=== PATIENT | female | born 1975 | race Caucasian/White ===

== ENCOUNTER 2021-12-10 01:16 | Inpatient (IN) | payer MEDICAID, MEDICARE ==
[~2021-12-10] VITALS: Ht 160 cm; Wt 67.6 kg
[~2021-12-10 01:16] MED LIST: NO HOME MEDS
[2021-12-10 02:16] LABS: BASOPHILS % (AUTO) 0.6 % (0-1); EOSINOPHILS # (AUTO) 0.1 X10'3 (0-0.9); EOSINOPHILS % (AUTO) 0.7 % (0-6); HEMATOCRIT 39.7 % (35.0-45.0); HEMOGLOBIN 13.4 g/dl (12.0-16.0); LYMPHOCYTES # (AUTO) 1.1 X10'3 (1.1-4.8); LYMPHOCYTES % (AUTO) 14.1 % (21-51); MEAN CORPUSCULAR HEMOGLOBIN 30.3 PG (27.0-31.0); MEAN CORPUSCULAR HGB CONC 33.7 g/dL (33.0-36.5); MEAN CORPUSCULAR VOLUME 89.7 FL (78-98); MEAN PLATELET VOLUME 8.3 FL (7.4-10.4); MONOCYTES # (AUTO) 0.6 X10'3 (0-0.9); MONOCYTES % (AUTO) 7.7 % (2-12); NEUTROPHILS # (AUTO) 5.8 X10'3 (1.8-7.7); NEUTROPHILS % (AUTO) 76.9 % (42-75); PLATELET COUNT 327 X10'3 (140-440); RED BLOOD COUNT 4.42 X10'6 (4.20-5.60); RED CELL DISTRIBUTION WIDTH 14.4 % (11.5-14.5); WHITE BLOOD COUNT 7.6 X10'3 (4.5-11.0)
[2021-12-10 02:30] LABS: ALANINE AMINOTRANSFERASE 70 U/L (12-78); ALBUMIN 3.8 G/DL (3.4-5.0); ALBUMIN/GLOBULIN RATIO 0.8 (1.1-1.5); ALKALINE PHOSPHATASE 53 IU/L (46-116); ANION GAP 13 (8-16); ASPARTATE AMINO TRANSFERASE 83 U/L (10-37); BILIRUBIN,TOTAL 0.3 MG/DL (0.1-1.0); BLOOD UREA NITROGEN 7 MG/DL (7-18); BUN/CREATININE RATIO 8.4 (6.6-38.0); CALCIUM 8.4 MG/DL (8.5-10.1); CHLORIDE 105 MMOL/L (99-107); CREATININE 0.83 MG/DL (0.40-0.90); GLUCOSE 89 MG/DL (70-104); POTASSIUM 3.2 MMOL/L (3.5-5.1); SODIUM 139 MMOL/L (135-145); TOTAL CARBON DIOXIDE 21.3 MMOL/L (24-32); TOTAL PROTEIN 8.3 G/DL (6.4-8.2); eGFR 74 ML/MIN
[2021-12-10 03:24] LABS: CLARITY,URINE SLIGHTLY CLOUDY (Clear); COLOR,URINE YELLOW (Yellow); GLUCOSE, URINE NEGATIVE (Neg); KETONES,URINE TRACE mg/dl (Neg); LEUKOCYTE ESTERASE ,URINE NEGATIVE (Neg); NITRITES, URINE NEGATIVE (Neg); OCCULT BLOOD,URINE LARGE (Neg); PH,URINE 5.5 (4.8-8.0); PROTEIN,URINE 100 mg/dl (Neg); URINE HCG NEGATIVE (NEG); UROBILINOGEN,URINE 0.2 E.U/dL (0.2-1.0)
[2021-12-10 03:26] LABS: URINE AMPHETAMINE SCREEN NEGATIVE (Neg); URINE BARBITUATE SCREEN NEGATIVE (Neg); URINE BENZODIAZEPINES SCREEN NEGATIVE (Neg); URINE CANNABINOID SCREEN NEGATIVE (Neg); URINE COCAINE SCREEN NEGATIVE (Neg); URINE METHADONE SCREEN NEGATIVE (Neg); URINE OPIATE SCREEN NEGATIVE (Neg); URINE PHENCYCLIDINE SCREEN NEGATIVE (Neg)
[2021-12-10 03:27] LABS: UA COLLECTION TYPE CLN CATCH MIDSTREAM
[2021-12-10 03:38] LABS: BACTERIA,URINE 1+ /HPF (Neg); SQUAMOUS EPITHELIAL CELL,UR MANY /LPF (FEW)
[2021-12-10 03:39] LABS: CELLULAR CAST 0-4 /LPF (NEGATIVE); MUCUS STRANDS FEW /LPF (Neg)
--- NOTE | 2021-12-10 04:57 | NUR ---
PATIENT RESTING COMFORTABLY AT THIS TIME
[2021-12-10] MEDS ORDERED: lisinopril 10 MG tablet PO ONE ×2 (05:40→07:35)
--- NOTE | 2021-12-10 06:26 | NUR ---
Pt sleeping. No apparent distress or needs at this time.
--- NOTE | 2021-12-10 07:25 | NUR ---
Pt's BP 152/110. notified. Verbal order to give pt another 10mg Lisinopril PO, and make sure she has 20mg/day
--- NOTE | 2021-12-10 08:23 | NUR ---
Breakfast at bedside.
--- NOTE | 2021-12-10 08:58 | NUR ---
No change in BP after 2nd dose lisinopril.
--- NOTE | 2021-12-10 12:01 | NUR ---
[facility]22. PT. PRESENTS CALM AND COOPERATIVE WITH THIS [employer]. DENIES ANY CURRENT SI/HI OR A/V HALLUCINATIONS. PT. STATES SHE IS WANTING TO GO HOME AND HUG HER KITTEN. PT. INFORMED THAT SHE WOULD MEET WITH THE [facility] CLINICIAN SOMETIME DURING THE DAY FOR FURTHER EVALUATION FOR DISPOSITION. PT. VISIBLE ON THE UNIT AWAKE LYING IN BED. STAFF WILL CONTINUE TO MONITOR FOR SAFETY.
[2021-12-10] MEDS ORDERED: LISI20TA28 PO (12:20)
--- NOTE | 2021-12-10 12:24 | NUR ---
PT. SITTING IN BED EATING LUNCH.
--- NOTE | 2021-12-10 14:09 | NUR ---
PT. RESTING QUIETLY IN BED WITH EYES CLOSED. NO DISTRESS NOTED.
--- NOTE | 2021-12-10 16:55 | NUR ---
RESTING QUIETLY WITH EYES CLOSED NO DISTRESS NOTED.
--- NOTE | 2021-12-10 17:20 | NUR ---
[facility] CLINICIAN AT BEDSIDE.
--- NOTE | 2021-12-10 20:15 | NUR ---
PT resting in bed with eyes closed. No distress noted at this time.
--- NOTE | 2021-12-10 22:30 | NUR ---
Pt resting in bed with eyes closed, no distress noted.
--- NOTE | 2021-12-11 01:00 | NUR ---
Pt repositioned self in bed , pt appears to be sleeping, no distress noted.
--- NOTE | 2021-12-11 07:28 | NUR ---
PATIENT WAS RECEIVED RESTING IN BED QUIETLY. RESP EVEN AND NON LABORED . NO S/S OF DISCOMFORT. WILL CONTINUE TO ASSIST AND MONITOR NEEDED.
[2021-12-11] MEDS: lisinopril 20mg tablet PO SCH ×2 (08:18→08:19)
--- NOTE | 2021-12-11 11:40 | NUR ---
ADMIT NOTE Patient is a 46 year old female placed on a 5150 for DTS, arrived on the unit from [facility] at 1135. The original 5150 was written by law enforcement after she made suicidal statements to them and her , and was engaging in cutting behaviors. Toxicology +ETOH .250 She has a history of psychiatric hospitalization, but is not currently connected with services. Skin check completed, belongings inventoried. Pt calm and cooperative with admission process.
[2021-12-11 11:44] VITALS: BP 162/96
[2021-12-11] MEDS ORDERED: mag hydrox/Alum hydrox/simeth 30ml oral suspension PO PRN (11:45)
[2021-12-11] MEDS ORDERED: acetaminophen 325mg tablet PO PRN ×2 (11:45)
[2021-12-11] MEDS ORDERED: loperamide 2mg capsule PO PRN (11:45)
[2021-12-11] MEDS ORDERED: magnesium hydroxide 30ml (MOM) UD suspension PO PRN (11:45)
[2021-12-11 20:00] VITALS: BP 164/104
[2021-12-11] MEDS ORDERED: hydrOXYzine 25 MG tablet PO PRN (20:45)
[2021-12-11] MEDS ORDERED: traZODone 50mg tablet PO PRN (20:45)
[2021-12-11] MEDS ORDERED: QUEtiapine 25mg tablet PO PRN (20:45)
--- NOTE | 2021-12-11 22:07 | NUR ---
Pt with history of hypertension, B/P at this time checked manually and she is 164/104 , pt was resting in bed. She has no complaints at this time except for neck pain. Does take Lisinopril 20 mg daily, received dose this am, did require 2 one time doses of Lisinopril 10 mg in the ER due to elevated blood pressures. Call out to OCP to notify them of her current blood pressure.
--- NOTE | 2021-12-12 00:05 | NUR ---
OCP called back about patients blood pressure, no further orders at this time. Continue to monitor and notify hospitalist when they come to see patient for her admit physical.
--- NOTE | 2021-12-12 00:14 | NUR ---
Nursing Progress Note: Aida Legal hold: 5150 Client on involuntary status for DTS Report received from Laura MENA with use of SBAR. Why are they here: Patient is a 46 year old female placed on a 5150 for DTS, arrived on the unit from [facility] at 1135. The original 5150 was written by law enforcement after she made suicidal statements to them and her , and was engaging in cutting behaviors. Assessment What has happened this shift: Pt sitting up in bed reading at change of shift. Pt denies MH symptoms and stated all that she is thinking about are her 4 cats at home. She denies depression and anxiety, complained of some neck pain, PRN Tylenol given with good effect. She did state that her and her are right now but are trying to work things out. BP 164/107 provider notified. S/I, H/I: Pt denies both. A/VH: Pt denies both Sleep: ADL's: Independent Group attendance: No Were meds taken: No scheduled medications. Any med S/E: None reported or observed. Mental Status Exam Appearance: middle age female dressed in green unit scrubs Eye contact: fair Behavior: calm, cooperative Speech: WNL Mood: calm Affect: linear Thought process: missing her 4 cats Thought Content: trying to work things out with her Cognition: A&O X 3 Insight: fair Judgment: fair Interventions PRN's used: None. Therapeutic interventions: 1:1 assessment, establishment of rapport, therapeutic conversation, active listening, medication administration/education/monitoring, behavior monitoring and intervention as needed; distraction, redirection, reality orientation, verbal de-escalation, limit setting, show of support, positive reinforcement, and Q 15 minute safety checks. Restraints/seclusion/emergency medication: None Justification of Continued Inpatient Treatment: Patient continues to present disorganized and delusional. Pt is thin and refusing nutrition or eating minimally. Pt unable to formulate plan for food, long term or clothing. Pt is intermittent in taking her medications, will continue to monitor.
[2021-12-12 07:32] LABS: CHOL/HDL RATIO 2.1 (0.00-4.99); CHOLESTEROL 173 MG/DL (0-200); HDL CHOLESTEROL 81 MG/DL (35-60); LDL CHOLESTEROL 45 MG/DL (50-100); TRIGLYCERIDES 137 MG/DL (20-135)
[2021-12-12 07:33] VITALS: BP 155/109
[2021-12-12] MEDS: lisinopril 20mg tablet PO SCH (09:04)
--- NOTE | 2021-12-12 09:06 | NUR ---
Pt. attended two groups today. In our first group we talked about hearing voices and read an article about coping strategies. We discussed what coping strategies they had success with in the past and brainstormed developing coping skills. The second group was an Art Expression where they had to draw opposing emotions and then write a dialogue between these emotions. Pt. engaged in both groups today. She quietly observes what is going on in the group and speaks minimally. When asked to share she hesitantly shared her thoughts with the group. She was alert and oriented X 4. Her thought content is simple but she was able to engage in the art expression - her opposing feelings were sad and happy. She shared she was sad when a friend betrayed her and is happiest with friends and family. Her demeanor is calm and compliant. Her mood is bright with a restricted affect. Stacey Carbajal LCSW
[2021-12-12] MEDS ORDERED: naltrexone 50mg tablet PO ONE (13:20)
--- NOTE | 2021-12-12 15:23 | NUR ---
Aida is a 46 y/o female who called [facility] making suicidal statements and reported she cut her wrist. She was placed on 5150 and taken to [facility] ER. She was placed on another 5150 for danger to self. She had superficial cuts to her wrist which did not require medical attention. She has a history of alcohol abuse and her HANH was .250 upon presentation to the ER. She has a history of psychiatric hospitalization and was last hospitalized 08/2019 at [place]. Aida reported she was "a little depressed a few nights ago" and was drinking alcohol. "Drinking is more the cause than anything". She reported she superficially cut on her arms. She denied any current SI or HI. She reported she needs to stop drinking. She noted she did have 2 years sobriety at one point. She declined assistance with going to an in-patient program, "I can do it on my own". She reported she has a lot of support to help her stay sober including AA, [facility], [facility], and her family. Aida reported a couple of previous hospitalizations. She reported she was going to [facility] at one point and would like to re-establish with them. Aida reported she and her are and live in separate trailers in a trailer park in [place]. Aida has an [facility] worker and a payee. She reported her family is supportive. Her mother takes care of her 10 y/o son and also lives in [place]. [facility]ler Helper will schedule follow up at [facility] for patient. JONH Yoo Addendum: 12/12/21 at 1525 by Luz DOYLE Amended: Links added.
--- NOTE | 2021-12-12 17:42 | NUR ---
Nursing Progress Note: Aida Legal hold: 5150 Client on involuntary status for DTS Report received from RAJESH Graham with use of SBAR. Why are they here: Patient is a 46 year old female placed on a 5150 for DTS, arrived on the unit from [facility] at 1135. The original 5150 was written by law enforcement after she made suicidal statements to them and her , and was engaging in cutting behaviors. Assessment What has happened this shift: Patient is resting quietly in bed at the start of the shift. Cooperative with 1:1 assessment and medication. Noted talking on the phone. She is pleasant and cooperative although somewhat guarded when discussing mental health symptoms. Denies and SI at this time. Participates in group. S/I, H/I: Denies A/VH: Denies Sleep: 2 hours in the morning ADL's: Independent Group attendance: No Were meds taken: Yes Any med S/E: None observed or reported. Mental Status Exam Appearance: middle age female dressed in green unit scrubs Eye contact: fair Behavior: Cooperative Speech: Clear, normal rate/ volume Mood: Fine. Affect: Congruent Thought process: Linear Thought Content: Meeting needs Cognition: A&O X 3 Insight: fair Judgment: fair Interventions PRN's used: None. Therapeutic interventions: 1:1 assessment, establishment of rapport, therapeutic conversation, active listening, medication administration/education/monitoring, behavior monitoring and intervention as needed; distraction, redirection, reality orientation, verbal de-escalation, limit setting, show of support, positive reinforcement, and Q 15 minute safety checks. Restraints/seclusion/emergency medication: None Justification of Continued Inpatient Treatment: Patient continues to present disorganized and delusional. Pt is thin and refusing nutrition or eating minimally. Pt unable to formulate plan for food, mcfp or clothing. Pt is intermittent in taking her medications, will continue to monitor.
[2021-12-12 19:00] VITALS: BP 123/84
--- NOTE | 2021-12-13 04:47 | NUR ---
Nursing Progress Note: Legal hold: 5150 Client on involuntary status for DTS Report received from HIMANSHU Beard with use of SBAR. Why are they here: Patient is a 46 year old female placed on a 5150 for DTS, arrived on the unit from [facility] at 1135. The original 5150 was written by law enforcement after she made suicidal statements to them and her , and was engaging in cutting behaviors. Assessment What has happened this shift: Patient laying in bed at the beginning of shift. Pleasant and cooperative with care; no scheduled medications this shift. Patient appeared animated; laughing prior to responding to MH assessment. She denies SI, HI, A/VH; no apparent delusions reported. Patient did not participate in HS snack this shift; observed sleeping and does not appear to be having difficulty. S/I, H/I: Denies A/VH: Denies Sleep: Refer to sleep assessment ADL's: Independent Group attendance: NA Were meds taken: Yes Any med S/E: None observed or reported Mental Status Exam Appearance: Appropriately dressed in green unit attire Eye contact: Fair Behavior: Pleasant and cooperative; isolative Speech: Clear, normal rate/ volume Mood: "Good" Affect: Animated Thought process: Linear Thought Content: Meeting needs Cognition: A&O X 3 Insight: Fair Judgment: Fair Interventions PRN's used: None Therapeutic interventions: 1:1 assessment, establishment of rapport, therapeutic conversation, active listening, medication administration/education/monitoring, behavior monitoring and intervention as needed; distraction, redirection, reality orientation, verbal de-escalation, limit setting, show of support, positive reinforcement, and Q 15 minute safety checks. Restraints/seclusion/emergency medication: None Justification of Continued Inpatient Treatment: Patient continues to present disorganized and delusional. Pt is thin and refusing nutrition or eating minimally. Pt unable to formulate plan for food, intermediate or clothing. Pt is intermittent in taking her medications, will continue to monitor.
[2021-12-13] MEDS: naltrexone 50mg tablet PO SCH (07:48)
[2021-12-13] MEDS: lisinopril 20mg tablet PO SCH (07:49)
[2021-12-13 08:02] VITALS: BP 145/99
--- NOTE | 2021-12-13 10:50 | NUR ---
DISCHARGE PLAN Aida may discharge when her hold is up on 12/14/21. Scheduled her follow up with Arturo Mireles with both Primary Care and her counselor. Call [facility] office at [phone] to request transportation. JONH Yoo
--- NOTE | 2021-12-13 17:20 | NUR ---
Nursing Progress Note: Aida Legal hold: 5150 Client on involuntary status for DTS Report received from RAJESH Guardado with use of SBAR. Why are they here: Patient is a 46 year old female placed on a 5150 for DTS, arrived on the unit from [facility] at 1135. The original 5150 was written by law enforcement after she made suicidal statements to them and her , and was engaging in cutting behaviors. Assessment What has happened this shift: Patient is resting quietly in bed at the start of the shift. Cooperative with 1:1 assessment and medications. Pleasant and talkative. States she had weird dreams last night about alcohol. She states that when she stops drinking alcohol for long periods of time she has weird dreams about it. Does not appear to be distressed over her dreams. Denies and mental health symptoms. Spends time socializing on the unit. Participates in group. S/I, H/I: Denies A/VH: Denies Sleep: 2 hours in the morning ADL's: Independent Group attendance: Yes Were meds taken: Yes Any med S/E: None observed or reported. Mental Status Exam Appearance: middle age female dressed in green unit scrubs Eye contact: fair Behavior: Cooperative Speech: Clear, normal rate/ volume Mood: Good. Affect: Congruent Thought process: Linear Thought Content: Meeting needs Cognition: A&O X 4 Insight: fair Judgment: fair Interventions PRN's used: None. Therapeutic interventions: 1:1 assessment, establishment of rapport, therapeutic conversation, active listening, medication administration/education/monitoring, behavior monitoring and intervention as needed; distraction, redirection, reality orientation, verbal de-escalation, limit setting, show of support, positive reinforcement, and Q 15 minute safety checks. Restraints/seclusion/emergency medication: None Justification of Continued Inpatient Treatment: Patient continues to present disorganized and delusional. Pt is thin and refusing nutrition or eating minimally. Pt unable to formulate plan for food, half-way or clothing. Pt is intermittent in taking her medications, will continue to monitor.
[2021-12-13 19:50] VITALS: BP 145/101
--- NOTE | 2021-12-14 04:23 | NUR ---
Nursing Progress Note: Legal hold: 5150 Client on involuntary status for DTS Report received from HIMANSHU Beard with use of SBAR. Why are they here: Patient is a 46 year old female placed on a 5150 for DTS, arrived on the unit from [facility] at 1135. The original 5150 was written by law enforcement after she made suicidal statements to them and her , and was engaging in cutting behaviors. Assessment What has happened this shift: Patient watching TV with peers in the recreation room at the beginning of shift. Pleasant and cooperative with care; no medications scheduled this shift. She denies SI, HI, A/VH; does not appear to be responding to IS and no apparent delusions reported. Patient participated in HS snack and continued to watch TV prior to bed; observed sleeping and does not appear to be having difficulty. S/I, H/I: Denies A/VH: Denies Sleep: Refer to sleep assessment ADL's: Independent Group attendance: NA Were meds taken: Yes Any med S/E: None observed or reported Mental Status Exam Appearance: Appropriately dressed in green unit attire Eye contact: Fair Behavior: Pleasant and cooperative; watching TV Speech: Clear, normal rate/ volume Mood: "Good" Affect: Animated Thought process: Linear Thought Content: Meeting needs Cognition: A&O X 3 Insight: Fair Judgment: Fair Interventions PRN's used: None Therapeutic interventions: 1:1 assessment, establishment of rapport, therapeutic conversation, active listening, medication administration/education/monitoring, behavior monitoring and intervention as needed; distraction, redirection, reality orientation, verbal de-escalation, limit setting, show of support, positive reinforcement, and Q 15 minute safety checks. Restraints/seclusion/emergency medication: None Justification of Continued Inpatient Treatment: Patient continues to present disorganized and delusional. Pt is thin and refusing nutrition or eating minimally. Pt unable to formulate plan for food, care home or clothing. Pt is intermittent in taking her medications, will continue to monitor.
[2021-12-14] MEDS: naltrexone 50mg tablet PO SCH (08:02)
[2021-12-14] MEDS: lisinopril 20mg tablet PO SCH (08:03)
[2021-12-14 08:43] VITALS: BP 134/95
[2021-12-14] MEDS ORDERED: LISI40TA13 PO (13:23)
[2021-12-14] MEDS ORDERED: NALT50TA PO (13:23)
--- NOTE | 2021-12-14 14:00 | NUR ---
Discharge Note: Pt. discharged from the unit at 1400 accompanied by staff to the dinkey driver who will be transporting her back to [place]. Belongings were inventoried and returned to pt. by tech. This feature writer reviewed pt's medication and discharge instructions and she reported understanding. Pt. is able to contract for safety. She will be picking up her medications at her preferred pharmacy, and no smoking cessation required.
== END 2021-12-14 14:06 | disposition home or self-care (01) | DRG 751 ==
LOC: ER 01:18 → ED HOLD 12-11 10:15 → ADULT MH 12-11 11:35 → UNDODISIN 12-14 14:02
PROVIDERS: ADMIT Psychiatry & Neurology Psychiatry; ATTEND Psychiatry & Neurology Psychiatry
DX: F33.9 Major depressive disorder, recurrent, unspecified (principal); R45.851 Suicidal ideations; F10.229 Alcohol dependence with intoxication, unspecified; Z20.822 Contact with and (suspected) exposure to COVID-19; I10 Essential (primary) hypertension; Y90.8 Blood alcohol level of 240 mg/100 ml or more; Z82.49 Family history of ischemic heart disease and other diseases of the circulatory system; Z91.52 Personal history of nonsuicidal self-harm; Z88.8 Allergy status to other drugs, medicaments and biological substances; Z90.49 Acquired absence of other specified parts of digestive tract; Z98.51 Tubal ligation status
CPT/HCPCS: 36415; 80053; 80061; 80305; 80320; 81001; 81025; 83036; 84443; 85025; 87081; 87635; 99285; C9803